=== PATIENT | female | born 1990 | race Caucasian/White ===

== ENCOUNTER → 2017-05-13 21:42 | Observation (INO) ==
[2017-05-13 19:40] VITALS: BP 111/67
--- NOTE | 2017-05-13 20:35 | OB/GYN Progress Note ---
Date of Encounter: 05/13/17 Time of Encounter: 20:15 - Assessment and Plan (1) 37 weeks gestation of Current Visit: Yes Status: Acute (2) Uterine contractions Current Visit: Yes Status: Acute No cervical change on serial exams. Initial tachycardia on tracing, patient bolused with 1 L of fluid, tracing baseline resolved to 150. Patient discharged home with labor and went to return to triage precautions. Patient verbalizes understanding Subjective - Subjective Interval history: 37+6 weeks gestation presents to labor and delivery triage with contractions. Patient states she has been cameron off and on since last evening. Was seen in office today by Dr. Avalos, at that time she was [address] Avalos told her if she continued to have contractions us evening she needed to come to triage for an evaluation. She has been diagnosed with a primary genital herpes outbreak 1 week ago, and still has visible lesions per Dr. Avalos's exam today. She reports good movement, denies vaginal bleeding or leaking of fluid. Antepartum ROS: movement normal, contractions, no loss of fluid, no vaginal bleeding Objective - Vital Signs Vital Signs: Vital Signs Temp Pulse Resp BP 05/13/17 19:26 98.2 F 94 16 111/67 Intake and Output 05/13/17 05/13/17 05/13/17 07:59 15:59 23:59 Other: Weight 71.4 kg Patient Weight 05/13/17 23:59 Weight 71.4 kg - Exam FHR: auscultation normal FHR comments: Baseline 150 Abdomen: Present: normal appearance, soft, gravid Cervical dilation: /-1
[2017-05-13 20:37] LABS: Amphetamine Screen,Urine Negative ng/mL (Cutoff=1000); Barbiturate Screen,Urine Negative ng/mL (Cutoff=200); Benzodiazepines Screen,Urine Negative ng/mL (Cutoff=200); Cannabinoid Screen,Urine Negative ng/mL (Cutoff = 50); Cocaine Screen,Urine Negative ng/mL (Cutoff= 300); Opiate Screen,Urine Negative ng/mL (Cutoff=300); Phencyclidine Screen,Urine Negative ng/mL (Cutoff=25)
[2017-05-13 20:37] LABS: Hematocrit 35.3 % (35.3-44.9); Mean Corpuscular HGB Conc 31.2 g/dL (31.6-35.5); Mean Corpuscular Hemoglobin 27.4 pg (28.0-33.3); Mean Platelet Volume 10.6 fL (9.4-12.4); Platelet Count 174 K/mcL (140-400); Red Blood Count 4.01 M/mcL (3.82-4.97); Red Cell Distribution Width 14.2 % (11.5-14.5)
[~2017-05-13 21:42] MED LIST: Ringers Solution, Lactated 1,000 ML IVC ONE; Ringers Solution, Lactated 1,000 ML IVC SCH; Ringers Solution, Lactated 1,000 ML ONE
== END | disposition home or self-care (01) ==
LOC: 1NENULAB
PROVIDERS: ADMIT Obstetrics & Gynecology; ATTEND Obstetrics & Gynecology

== ENCOUNTER 2017-05-18 15:15 | Inpatient (IN) ==
[2017-05-18 16:26] LABS: Basophils # 0.1 K/mcL (0.0-0.2); Basophils % 0.5 %; Eosinophils # 0.1 K/mcL (0.0-0.6); Eosinophils % 0.5 %; Hematocrit 34.2 % (35.3-44.9); Hemoglobin 10.9 g/dL (11.5-15.4); Immature Granulocytes % 1.7 % (0-4); Lymphocytes # 1.5 K/mcL (0.6-4.6); Lymphocytes % 13.4 %; Mean Corpuscular HGB Conc 31.9 g/dL (31.6-35.5); Mean Corpuscular Hemoglobin 27.7 pg (28.0-33.3); Mean Platelet Volume 10.7 fL (9.4-12.4); Monocytes # 1.1 K/mcL (0.0-1.3); Monocytes % 9.4 %; Neutrophils # 8.3 K/mcL (1.6-8.9); Platelet Count 149 K/mcL (140-400); Red Blood Count 3.93 M/mcL (3.82-4.97); Red Cell Distribution Width 14.3 % (11.5-14.5); Segmented Neutrophils % 74.5 %
[2017-05-18] MEDS ORDERED: Ringers Solution, Lactated 1,000 ML ONE (16:35)
[2017-05-18] MEDS ORDERED: Oxytocin 20 units/ LR 1000 mL 20 UNIT/1,000 ML BAG IVC ONE (16:39)
[2017-05-18] MEDS ORDERED: Ringers Solution, Lactated 1,000 ML IVC ONE (16:39)
[2017-05-18] MEDS ORDERED: Metoclopramide 10 MG/2 ML VIAL IVP ONE (16:39)
[2017-05-18] MEDS ORDERED: CeFAZolin Premix DUPLEX 2,000 MG/50 ML BAG IVPB ONE (16:39)
[2017-05-18] MEDS ORDERED: Famotidine 20 MG/2 ML VIAL IVP ONE (16:39)
--- NOTE | 2017-05-18 16:41 | OB/GYN History & Physical ---
Date of Encounter: 05/18/17 Time of Encounter: 16:40 Assessment and Plan (1) and not yet delivered in third trimester Current visit: Yes Status: Acute (2) 38 weeks gestation of Current visit: Yes Status: Acute (3) Active labor at term Current visit: Yes Status: Acute (4) HSV (herpes simplex virus) infection Current visit: Yes Status: Acute will prep patient for primary low transverse section History of Present Illness HPI: Ms. Stokes is a 27 year old 2 para 0101 at 38-4/7 weeks who presented to labor and delivery in active labor. Patient is a scheduled C- section next week due to history of HSV-2 2 weeks ago. We do have her on acyclovir but because of the recent exposure recommend a section. Patient denies any leaking of fluid on admission patient was 3-4 cm and she is now 5 cm. GBS is negative rubella positive Rh+ Past Med Surg Social Fam HX - Past Medical History Source: patient, old records reviewed Medical history: no medical history, other (HSV2) Psychiatric history: depression - Past Surgical History Surgical History: other (Tonsillectomy) - Social History Smoking Status: Current every day smoker Smokeless Tobacco Status: No Alcohol use: none Drug use: none Occupational status: unemployed Current living situation: Home - Independent Activity Level: Independent ambulation Recent Out of Country Travel Within the Last 8 Weeks: No Exposure or Possible Exposure to Illness During Travel: No - Family History Mother Living Status: Still Living Hx Family Cardiac Disorders: No Hx Family Respiratory Disorders: No Hx Family Cancer: No Hx Family GI Disorders: No Hx Family Endocrine Disorder: No Hx Family Neuromuscular Disorders: No Hx Family Neurologic Disorders: No Hx Family HEENT Disorders: No Hx Family Autoimmune Disorders: No - Additional Family History Additional family history: Family history noncontributory Obstetrical History - Pregnancies : 2 Para: 0 Term: 0 : 0 Ab's: 1 Livin Medications and Allergies Acyclovir Sodium 400 mg PO DAILY 05/13/17 [History] Omeprazole 20 mg PO DAILY 05/13/17 [History] Formula Tablet 1 tab PO DAILY 05/13/17 [History] 3 Allergy/AdvReac Type Severity Reaction Status Date / Time No Known Allergies Allergy Verified 05/13/17 19:40 Review of System OB All systems PM: reviewed and no additional remarkable complaints except as stated Exam - Constitutional Constitutional: well developed, well nourished, average body habitus, moderate distress - HEENT HEENT: EOMI, PERRL, Mucus Membranes Moist - Neck Neck exam: full ROM - Lungs Respiratory exam: accessory muscle use, CTAB - Cardiovascular Cardiovascular exam: RRR - Abdomen Abdomen: Present: bowel sounds normal, gravid - Cervix Dilation: 5 Effacement: 100 Station: +1 ( heart tones 130s reactive contractions every 2-3 minutes) Results Result Diagrams: 05/18/17 15:55 Abnormal lab results WBC 11.2 K/mcL (4.3-11.1) H 05/18/17 15:55 Hgb 10.9 g/dL (11.5-15.4) L 05/18/17 15:55 Hct 34.2 % (35.3-44.9) L 05/18/17 15:55 MCH 27.7 pg (28.0-33.3) L 05/18/17 15:55 All other labs normal.
[2017-05-18 16:42] LABS: Amphetamine Screen,Urine Negative ng/mL (Cutoff=1000); Barbiturate Screen,Urine Negative ng/mL (Cutoff=200); Benzodiazepines Screen,Urine Negative ng/mL (Cutoff=200); Cannabinoid Screen,Urine Negative ng/mL (Cutoff = 50); Cocaine Screen,Urine Negative ng/mL (Cutoff= 300); Opiate Screen,Urine Negative ng/mL (Cutoff=300); Phencyclidine Screen,Urine Negative ng/mL (Cutoff=25)
[2017-05-18] MEDS ORDERED: *HR* FentaNYL (PF) 100 MCG/2 ML VIAL ONE (16:42)
[2017-05-18] MEDS ORDERED: Morphine Sulfate/PF 5mg/10mL Vial ONE (16:42)
[2017-05-18] MEDS ORDERED: EPHEDrine 50 MG/ML VIAL ONE (16:43)
[2017-05-18] MEDS ORDERED: Water for inj. (sterile) 10 ML IV ONE (16:43)
[2017-05-18] MEDS ORDERED: Ringers Solution, Lactated 1,000 ML IVC SCH ×3 (16:45→21:14)
[2017-05-18] MEDS ORDERED: Oxytocin 20 units/ LR 1000 mL 20 UNIT/1,000 ML BAG IVC SCH ×3 (16:45→21:14)
[2017-05-18] MEDS ORDERED: Ondansetron 4 MG/2 ML VIAL ONE (16:45)
[2017-05-18] MEDS ORDERED: Acetaminophen IV 1,000 MG/100 ML INFUS..BTL IVPB ONE (16:46)
--- NOTE | 2017-05-18 16:48 | Anesthesia Evaluation PreOp ---
Date of Encounter: 05/18/17 Time of Encounter: 16:47 - Past History Planned Operation: Primary C/S d/t herpes Cardiac History: Denies any Significant Hx Pulmonary History: Denies Any Significant HX BISQUE KILN DRAWER History: Denies Any Significant HX Other Medical History: Denies Any Significant HX Anesthesia History: No Prior Anesthetic Complications, Past Anesthesia Alcohol Use: none Drug use: none Medications and Allergies Acyclovir Sodium 400 mg PO DAILY 05/13/17 [History] Omeprazole 20 mg PO DAILY 05/13/17 [History] Formula Tablet 1 tab PO DAILY 05/13/17 [History] 3 Allergy/AdvReac Type Severity Reaction Status Date / Time No Known Allergies Allergy Verified 05/13/17 19:40 - Meds/Allergy Pre-op Review Medications Reviewed: Yes Allergies Reviewed: Yes Beta Blockers on Current Med List: No Anesthesia Results - Labs 05/18/17 15:55 Anesthesia Exam Height: 1,7m Weight: 73kg NPO (# of Hours): 8 Pain Scale: 8 Pain Scale Used: Numeric (1 - 10) - HEENT Pupil (Motor): Pupils equal Mallampati: II Teeth: Normal Oral Opening: Greater than 3 - BISQUE KILN DRAWER LOC: Oriented BISQUE KILN DRAWER Motor: Normal RUE, Normal LUE, Normal RLE, Normal LLE, Normal Face BISQUE KILN DRAWER Sensory: Normal: RUE, LUE, RLE, LLE, Face - Cardiac Rhythm: Regular Murmur: None JVD: No Carotid Bruit: No - Pulmonary Breath Sounds: bilateral Clear Respiratory Effort: Symmetrical Anesthesia Assess/Plan ASA Score: 2 Modified John Scale for Level of Consciousness: Cooperative, oriented, and tranquil Anesthetic Plan: General (plan b), Regional (plan a) Autologous Blood: Yes Monitoring Plan: Standard Monitors Recovery Plan: PACU
[2017-05-18] MEDS ORDERED: Oxytocin 20 units/ LR 1000 mL 40 UNIT/2,000 ML BAG IVC ONE (16:52)
[2017-05-18] MEDS ORDERED: Water for inj. (sterile) 20 ML IV ONE (17:00)
[2017-05-18] MEDS ORDERED: *HR* OxyCODONE Immed Rel 5 MG TABLET PO PRN (17:35)
[2017-05-18] MEDS ORDERED: Ondansetron 4 MG/2 ML VIAL IVP ONE (17:35)
[2017-05-18] MEDS ORDERED: *HR* Meperidine 25 MG/ML SYRINGE IVP PRN (17:35)
[2017-05-18] MEDS ORDERED: Naloxone 0.4 MG/ML INJ IVP PRN (17:35)
[2017-05-18] MEDS ORDERED: MORPHINE SUL Oral CONC 10 MG/0.5 ML ORAL.SYG SL PRN (17:35)
[2017-05-18] MEDS ORDERED: *HR* OxyCODONE/APAP 5/325 TABLET PO PRN (17:35)
[2017-05-18] MEDS ORDERED: Albuterol 2.5 MG/3 ML NEBULIZER IH ONE (17:35)
--- NOTE | 2017-05-18 18:20 | OB/GYN Procedure Note ---
Section - Date of procedure: 05/18/17 Preop diagnosis: other (Intrauterine at 38-4/7 weeks, active labor, recent HSV 2 infection) Post-op diagnosis: same Procedure: primary low transverse Surgeon: George Avalos Estimated blood loss (cc): 500 Was there an zoning assistant present: No Television Script Writer: Rafael Teran Anesthesia Type: Spinal section complications: none Disposition: L&D Recovery Room - (s) A Delivery Date: 05/18/17 Presentation: vertex Position: PARAM Route of delivery: other ( section) Gender: Male Viability: Viable Pounds: 6 Ounces: 2 Gram Weight: 2.79 kg at 1 minute: 9 at 5 minutes: 9 Shoulder Dystocia: not encountered Specimens collected: cord blood Placenta: spontaneous Cord: 3 umbilical vessels - Narrative Narrative: Patient is a 27-year-old 2 para 0010 at 38-4/7 weeks who presented to labor and delivery in active labor. Patient's been cameron on and off throughout the last few days but this morning woke up was having severe pain she presented to the office Depo-Provera we sent immediately to labor and delivery patient was noted to be 3-4 centimeters and was cameron every 2-3 minutes. She is a scheduled section for history of active HSV 2 2 weeks ago. Patient is reassessed one hour later was a good 5 cm. Patient was informed would be a section today. She denies any leaking of fluid. Procedure: Patient was taken to the operating room where spinal anesthesia was found to be adequate she was placed in the dorsal supine position with leftward tilt prepped and draped in usual fashion. Timeout was then obtained. A Pfannenstiel incision was made with a scalpel and carried down through the underlying tissue to the fascia was identified. The fascia was nicked in the midline extended laterally with Pitt scissors. The superior and inferior edges of the fascia grasped tented up dissected off the rectus muscles were rectus muscles were in the midline parietal peritoneum was identified tented up and entered sharply. This was extended superiorly and inferiorly with Metzenbaum scissors. The bladder blade was inserted the vesicouterine peritoneum was identified tented up and entered sharply. This was extended laterally the bladder flap was created digitally. The lower uterine segment was then incised with a scalpel and extended laterally with digital manipulation. Membranes ruptured clear fluid. The infant's head was disengaged and brought out through the incision and the was fully delivered. Cord was clamped and cut and infant was handed off to waiting pediatric team. Cord blood was collected placenta was delivered spontaneously 3 vessel cord. Uterus was then exteriorized cleaned of all clots and debris and the lower uterine segment was closed using a 0 Vicryl in a running locking stitch by a 2 layer closure. Good hemostasis was noted ovaries tubes noted be normal she has a small posterior fibroid about 1 cm. Uterus was returned to the abdomen the gutters were cleaned of all clots and debris and copiously irrigated. The fascia was then closed using a #1 stratafix in a running stitch and the skin was closed using a 4-0 Vicryl in a subcuticular manner. A PRIMEO dressing was applied and the procedure was terminated. All needles laps and sponge counts were correct 3 she did receive preoperative antibiotics. She will be taken to the recovery room for 2 hours then to the floor.
--- NOTE | 2017-05-18 19:35 | Anesthesia Evaluation Post Op ---
Date of Encounter: 05/18/17 Time of Encounter: 19:34 - Lungs Lungs: Clear Ascult./Percussion - Airway Airway: Non-obstructed - Cardiovascular Regular Rate, Baseline Rhythm - Mental Status Mental Status: Alert & Oriented, Answers Appropriately, Baseline Status - Pain Pain Scale: 2 Pain Scale used: Numeric (1 - 10) - Nausea Vomiting Nausea Vomiting: Not Present - Hydration Hydration: NPO, Arevlao catheter - Discharge PostOp Status: Transfer Patient to floor
[2017-05-18] MEDS ORDERED: Metoclopramide 10 MG/2 ML VIAL IVP PRN (21:14)
[2017-05-18] MEDS ORDERED: Ondansetron 4 MG/2 ML VIAL IVP PRN (21:14)
[2017-05-18] MEDS ORDERED: Simethicone 80 MG TAB.CHEW PO PRN (21:14)
[2017-05-18] MEDS ORDERED: Sennosides 8.6 MG TABLET PO PRN (21:14)
[2017-05-19] MEDS: Ibuprofen 600 MG TABLET PO PRN (02:23)
[2017-05-19 04:18] LABS: Basophils % 0.2 %; Eosinophils % 0.2 %; Lymphocytes % 8.1 %; Mean Corpuscular Hemoglobin 27.4 pg (28.0-33.3); Mean Corpuscular Volume 88.2 fL (83.0-100.0); Mean Platelet Volume 10.3 fL (9.4-12.4); Monocytes % 8.5 %; Neutrophils # 10.1 K/mcL (1.6-8.9); Platelet Count 117 K/mcL (140-400); Red Cell Distribution Width 14.4 % (11.5-14.5)
[2017-05-19 04:22] LABS: Hemoglobin 9.3 g/dL (11.5-15.4)
[2017-05-19] MEDS: *HR* OxyCODONE/APAP 5/325 TABLET PO PRN ×3 (05:26→21:33)
[2017-05-19] MEDS: Acyclovir 200 MG CAPSULE PO SCH (07:57)
[2017-05-19] MEDS: Prenatal Vit/FA 1 EACH TABLET PO SCH (07:58)
[2017-05-19] MEDS ORDERED: NON-FORMULARY MEDICATION 1 EACH EACH (Prenatal Formula Tablet 1 TAB) PO SCH (09:00)
--- NOTE | 2017-05-19 19:03 | OB/GYN Progress Note ---
Date of Encounter: 05/19/17 Time of Encounter: 19:00 - Assessment and Plan (1) delivery delivered Current Visit: Yes Status: Acute s/p primary low transverse day#[address] Avalos Continue with Percocet and Motrin. Follow-up on pain control tomorrow. Plan for discharge tomorrow. (2) HSV (herpes simplex virus) infection Current Visit: Yes Status: Acute Subjective - Subjective Principal diagnosis: s/p Interval history: Patient reports her current pain is 7/10. Last oxycodone dose at 1600. She reports medication is helping. Pain was exacerbated by ambulation to restroom. She does not require any additional pain medications when asked. She reports voiding without difficulty, passing gas, but no bowel movement yet. Her appetite is improving since morning and able to tolerate PO intake. Denies headaches, vision disturbances, shortness of breath. Does report right sided rib pain during inhalation. without difficulty. No further acute complaints. Patient reports: appetite normal, voiding normally, pain poorly controlled, ambulating normally : doing well Objective - Vital Signs Latest vital signs: Vital Signs Temp Pulse Resp BP Pulse Ox 05/19/17 16:05 97.6 F 98 16 103/64 96 05/19/17 13:18 98.3 F 90 16 92/65 97 05/19/17 10:20 98.6 F 95 16 117/69 96 05/19/17 08:00 98.6 F 95 16 117/69 96 05/19/17 00:00 98.3 F 80 18 106/65 96 05/18/17 23:05 97.2 F L 79 16 110/63 96 05/18/17 22:00 98 F 67 18 114/70 96 05/18/17 21:30 98.1 F 77 16 114/67 77 05/18/17 21:05 98 F 62 18 114/69 98 Intake and Output 05/19/17 05/19/17 05/19/17 07:59 15:59 23:59 Intake Total 450 / 450 800 / 800 Balance 450 / 450 800 / 800 Intake: Oral 450 / 450 800 / 800 Other: Stool Characteristics Normal for Patient - Exam Lungs: bilateral: normal Chest: Normal S1, Normal S2 Extremities: Present: normal, edema (1+ bilaterally) Abdomen: Present: normal appearance, soft Incision: Present: normal, dry, intact, other (very tender) Uterus: Present: normal, firm Fundal Height: 0 (at level of umbilicus ) - Labs Labs: Laboratory Results - last 24 hr 05/19/17 04:04 WBC 12.3 H RBC 3.40 L Hgb 9.3 L D Hct 30.0 L MCV 88.2 MCH 27.4 L MCHC 31.0 L RDW 14.4 Plt Count 117 L MPV 10.3 Immature Gran % 1.0 Seg Neutrophils % 82.0 Lymphocytes % 8.1 Monocytes % 8.5 Eosinophils % 0.2 Basophils % 0.2 Neutrophils # 10.1 H Lymphocytes # 1.0 Monocytes # 1.0 Eosinophils # 0.0 Basophils # 0.0
[2017-05-19] MEDS ORDERED: Lanolin 7 G OINT...G. TP PRN (20:08)
[2017-05-20] MEDS: *HR* OxyCODONE/APAP 5/325 TABLET PO PRN ×3 (02:35→12:55)
[2017-05-20] MEDS: Acyclovir 200 MG CAPSULE PO SCH (08:25)
[2017-05-20] MEDS: Prenatal Vit/FA 1 EACH TABLET PO SCH (08:27)
[2017-05-20 09:31] VITALS: BP 106/70
--- NOTE | 2017-05-20 12:22 | Discharge Summary ---
Date of Encounter: 05/20/17 Time of Encounter: 12:18 - Discharge Diagnosis (1) Breast feeding status of mother Priority: Secondary Status: Acute Comments: support prn (2) delivery delivered Priority: Primary Status: Acute Comments: Continue routine postop/ care discharge home today follow up with Dr. Avalos in 2 weeks for incision check (3) HSV (herpes simplex virus) infection Priority: Secondary Status: Acute Comments: continue treatment primary c/s for outbreak - Discharge Medications Prescriptions: OxyCODONE/APAP 5/325 [Percocet 5/325 MG] 1 each PO Q4HR PRN 5 Days #30 tablet PRN Reason: Moderate pain 4-6 Ibuprofen [Motrin] 600 mg PO Q6HR PRN #60 tablet PRN Reason: Cramping Docusate [Colace] 100 mg PO BID #60 capsule Home Medications: Acyclovir Sodium 400 mg PO DAILY 05/13/17 [History] Formula Tablet 1 tab PO DAILY 05/13/17 [History] Acyclovir [Zovirax] 400 mg PO DAILY capsule 05/20/17 [Rx] Docusate [Colace] 100 mg PO BID #60 capsule 05/20/17 [Rx] Ibuprofen [Motrin] 600 mg PO Q6HR PRN #60 tablet 05/20/17 [Rx] Lanolin [Lansinoh] 1 appl TP TID PRN oint...g. 05/20/17 [Rx] OxyCODONE/APAP 5/325 [Percocet 5/325 MG] 1 each PO Q4HR PRN 5 Days #30 tablet [Rx] Vit/FA 1 each PO DAILY tablet 05/20/17 [Rx] Allergies/Adverse Reactions: 3 Allergy/AdvReac Type Severity Reaction Status Date / Time latex AdvReac Rash Verified 05/18/17 17:10 Data Procedures and tests throughout hospitalization: Laboratory Tests 05/18/17 05/18/17 05/19/17 15:45 15:55 04:04 WBC 11.2 H 12.3 H RBC 3.93 3.40 L Hgb 10.9 L 9.3 L D Hct 34.2 L 30.0 L MCV 87.0 88.2 MCH 27.7 L 27.4 L MCHC 31.9 31.0 L RDW 14.3 14.4 Plt Count 149 117 L MPV 10.7 10.3 Immature Gran % 1.7 1.0 Seg Neutrophils % 74.5 82.0 Lymphocytes % 13.4 8.1 Monocytes % 9.4 8.5 Eosinophils % 0.5 0.2 Basophils % 0.5 0.2 Neutrophils # 8.3 10.1 H Lymphocytes # 1.5 1.0 Monocytes # 1.1 1.0 Eosinophils # 0.1 0.0 Basophils # 0.1 0.0 Urine Opiates Screen Negative Ur Barbiturates Screen Negative Ur Phencyclidine Scrn Negative Ur Amphetamines Screen Negative U Benzodiazepines Scrn Negative Urine Cocaine Screen Negative U Marijuana (THC) Screen Negative Date of admission: 05/18/17 15:15 Primary care physician: PCP NONE Discharging clinician: Sherry Pathak Anticipated date of discharge: 05/20/17 - Patient Status Disposition: Home, Self-Care Condition: Good Functional capacity at discharge: independent ambulation - Discharge Instructions Follow Up With: NONE,PCP [Primary Care Provider] - George Avalos DO [Partnered Physician] - - Diet and Activity Activity: increase activity as tolerated Diet: regular diet Hospital Course Reason for admission: active labor (with HSV outbreak) Delivery: section Episiotomy: none Laceration: none complications: none Discharge diagnosis: IUP at term delivered Aldie baby: male (breast feeding) Hospital course: oarrs report reviewed by BANDAR Bojorquez Time Attestation: Total time spent providing and/or coordinating discharge services: Time Spent: Less than 30 minutes - VTE Reasons for not Prescribing Prophylaxis: Treatment not Indicated - Low risk for VTE Documentation of Mechanical Device: Intermittent pneumatic compression device Exam - Constitutional Vitals: Temp Pulse Resp BP Pulse Ox 97.8 F 87 12 106/70 97 05/20/17 07:55 05/20/17 07:55 05/20/17 07:55 05/20/17 07:55 05/20/17 07:55 General appearance IM: A&O X 3, pleasant, answers questions appropriately - Respiratory Respiratory exam: Present: CTAB - Cardiovascular Cardiovascular exam IM: Present: RRR, +S1, +S2 - GI/Abdominal GI/Abdominal exam IM: normal bowel sounds Incision: normal, dry, intact - Uterine Tone: Firm Uterus Position: 2 Fingers Below Umbilicus, Midline - Extremities Exam Extremities exam IM: Present: full ROM, normal capillary refill, normal inspection - Neurological Exam Neurological exam: alert, oriented X3, reflexes normal
[2017-05-20] MEDS: Ibuprofen 600 MG TABLET PO PRN (12:55)
== END 2017-05-20 16:15 | disposition home or self-care (01) | DRG 540 ==
LOC: 1NENULAB → OBSVTOIN 15:15 → 1NENUOBS 21:15
PROVIDERS: ADMIT Obstetrics & Gynecology; ATTEND Obstetrics & Gynecology